=== PATIENT | male | born 1940 | race Caucasian/White ===

== ENCOUNTER → 2017-03-01 | Outpatient (CLI) | payer MEDICARE, OTHER ==
[~2017-03-01] MED LIST: ANDROGEL1% TP; ASPIRIN E.C. 8181 MG PO; NEXIUM40 MG PO; URSO FORTE500 MG PO; URSODIOL500 MG PO; WELCHOL625 MG PO; ZANTAC 150MG T150 MG PO; ZETIA 10MG TAB10 MG PO
== END ==
LOC: COL.RAD 09:00
DX: R79.89 Other specified abnormal findings of blood chemistry (principal); K74.60 Unspecified cirrhosis of liver; R19.4 Change in bowel habit; Z90.49 Acquired absence of other specified parts of digestive tract

== ENCOUNTER → 2017-08-31 | Outpatient (CLI) | payer MEDICARE, OTHER | LOC: COL.RAD 09:45 | DX: K74.3 Primary biliary cirrhosis (principal); R06.02 Shortness of breath; R14.0 Abdominal distension (gaseous); R12 Heartburn ==

== ENCOUNTER → 2019-09-11 | Outpatient (CLI) | payer MEDICARE, OTHER | LOC: COL.RAD 09-05 10:30 | DX: K74.3 Primary biliary cirrhosis (principal); Z90.49 Acquired absence of other specified parts of digestive tract ==

== ENCOUNTER → 2020-03-01 | Outpatient (CLI) | payer MEDICARE, OTHER ==
[2020-03-01 07:38] LABS: BASO % 0.5 % (0.0-2.0); EOS # 0.4 (0.0-0.7); EOS % 6.2 % (0-4.0); GRAN # 3.4 (1.4-6.5); GRAN % 55.4 % (42.2-75.2); HEMATOCRIT 44.9 % (42.0-52.0); HEMOGLOBIN 14.7 g/dl (13.5-18.0); LYMPH # 1.5 (1.2-3.4); MEAN CELL VOLUME 96 fl (80.0-100.0); MEAN CORPUSCULAR HEMOGLOBIN 31 pg (27.0-31.0); MEAN CORPUSCULAR HGB CONC 33 g/dl (33.0-37.0); MEAN PLATELET VOLUME 9.3 fl (7.4-10.4); MONO # 0.8 (0.1-0.6); MONO % 12.6 % (1.7-9.3); PLATELET COUNT 166 K/mm3 (130-400); RED BLOOD COUNT 4.68 M/mm3 (4.20-5.60); REDCELL DISTRIBUTION WIDTH-CV 13.3 % (11.5-14.5)
[2020-03-01 07:44] LABS: ALBUMIN 4.3 gm/dL (3.5-5.0); BILIRUBIN,TOTAL 0.6 mg/dL (0.0-1.0); CALCIUM 9.1 mg/dL (8.4-10.2); CREATININE, serum 1.68 (0.66-1.25); POTASSIUM 5.4 mmol/L (3.4-5.0); TOTAL PROTEIN 7.6 gm/dL (6.4-8.2)
== END ==
LOC: COL.RAD 06:45
PROVIDERS: Physician Assistant
DX: K74.3 Primary biliary cirrhosis (principal); Z90.49 Acquired absence of other specified parts of digestive tract

== ENCOUNTER → 2020-03-26 | Outpatient (CLI) | payer MEDICARE, OTHER | LOC: COL.VAS 06:52 | DX: R06.02 Shortness of breath (principal) ==

== ENCOUNTER → 2021-03-03 | Outpatient (CLI) | payer MEDICARE, OTHER | LOC: COL.RAD 06:43 | DX: K74.3 Primary biliary cirrhosis (principal); K76.0 Fatty (change of) liver, not elsewhere classified; Z90.49 Acquired absence of other specified parts of digestive tract ==

== ENCOUNTER → 2021-09-08 | Outpatient (CLI) | payer MEDICARE, OTHER | LOC: COL.RAD 08:39 | DX: K74.3 Primary biliary cirrhosis (principal); R94.5 Abnormal results of liver function studies; R12 Heartburn ==

== ENCOUNTER → 2022-03-17 | Outpatient (CLI) | payer MEDICARE, OTHER | LOC: COL.RAD 08:39 | DX: K74.3 Primary biliary cirrhosis (principal); K21.9 Gastro-esophageal reflux disease without esophagitis; R79.89 Other specified abnormal findings of blood chemistry; R19.8 Other specified symptoms and signs involving the digestive system and abdomen ==

== ENCOUNTER 2022-06-19 15:09 | Emergency (ER) | payer MEDICARE, OTHER ==
[~2022-06-19] VITALS: Ht 170.2 cm; Wt 84.1 kg
[2022-06-19 15:33] VITALS: TEMP 97.6
[2022-06-19 16:15] LABS: BASO % 0.6 % (0.0-2.0); EOS # 0.4 K/mm3 (0.0-0.7); GRAN # 3.6 K/mm3 (1.4-6.5); HEMATOCRIT 39.8 % (42.0-52.0); HEMOGLOBIN 13.3 g/dl (13.5-18.0); LYMPH # 1.7 K/mm3 (1.2-3.4); LYMPH % 24.8 % (20.0-51.0); MEAN CELL VOLUME 95 fl (80.0-100.0); MEAN CORPUSCULAR HEMOGLOBIN 32 pg (27-31); MEAN CORPUSCULAR HGB CONC 33 g/dl (33.0-37.0); MEAN PLATELET VOLUME 9.7 fl (7.4-10.4); MONO % 14.4 % (1.7-9.3); PLATELET COUNT 160 K/mm3 (130-400); RED BLOOD COUNT 4.18 M/mm3 (4.20-5.60); REDCELL DISTRIBUTION WIDTH-CV 12.9 % (11.5-14.5)
[2022-06-19 16:20] LABS: INR 0.9 (0.8-3.0); PROTHROMBIN TIME 10.8 SECONDS (9.7-12.8)
[2022-06-19 16:23] LABS: PARTIAL THROMBOPLASTIN TIME 29.1 SECONDS (26.0-37.0)
[2022-06-19 16:29] LABS: ALBUMIN 3.6 gm/dL (3.4-4.8); BILIRUBIN,TOTAL 0.3 mg/dL (0.2-1.2); CALCIUM 9.3 mg/dL (8.4-10.2); CREATININE, serum 2.09 mg/dL (0.72-1.25); POTASSIUM 4.3 mmol/L (3.5-4.5); TOTAL PROTEIN 6.3 gm/dL (6.2-8.1)
[2022-06-19 18:12] VITALS: BP 132/76; PULSE 65
== END 2022-06-19 18:12 | disposition home or self-care (01) ==
LOC: COL.ER 15:09
PROVIDERS: Physician Assistant
DX: G45.3 Amaurosis fugax (principal); R94.4 Abnormal results of kidney function studies; Z87.891 Personal history of nicotine dependence
CPT/HCPCS: J7030; Q9967

== ENCOUNTER → 2022-11-20 | Outpatient (CLI) | payer MEDICARE, OTHER | LOC: COL.RAD 07:35 | DX: K74.60 Unspecified cirrhosis of liver (principal); K44.9 Diaphragmatic hernia without obstruction or gangrene; K74.3 Primary biliary cirrhosis; K75.0 Abscess of liver; K21.9 Gastro-esophageal reflux disease without esophagitis ==

== ENCOUNTER → 2023-08-12 | Outpatient (CLI) | payer MEDICARE, OTHER | LOC: COL.RAD 12:29 | DX: N50.811 Right testicular pain (principal); N50.812 Left testicular pain ==